=== PATIENT | female | born 1970 ===

== ENCOUNTER 2016-09-24 20:59 | Emergency (ER) | payer OTHER ==
--- NOTE | 2016-09-24 21:25 | C.PDOC ---
History Of Present Illness 45 year old presents to the ED complaining of bilateral lower abdominal pain that began tonight. Patient complains of an itchy rash. Patient denies dysuria, hematuria, nausea, vomiting, diarrhea, fever or back pain. Time Seen by Provider: 09/24/16 21:22 Chief Complaint (Nursing): Abdominal Pain History Per: Patient History/Exam Limitations: no limitations Onset/Duration Of Symptoms: Hrs (tonight) Current Symptoms Are (Timing): Still Present Context: Other Severity: Moderate Pain Scale Rating Of: 4 Location Of Pain/Discomfort: RLQ, LLQ Radiation Of Pain To:: None Quality Of Discomfort: "Pain" Exacerbating Factors: None Alleviating Factors: None Last Bowel Movement: Today Recent travel outside of the [place]: No Abnormal Vaginal Bleeding: No Past Medical History Reviewed: Historical Data, Nursing Documentation, Vital Signs Vital Signs: Last Vital Signs Temp 97.7 F 09/24/16 21:22 Pulse 70 09/24/16 21:22 Resp 20 09/24/16 21:22 BP 126/62 09/24/16 21:22 Pulse Ox 100 09/24/16 21:22 - [facility] Procedures INJECT/INFUSE NEC (07/14/04) Family History: States: Unknown Family Hx Review Of Systems Except As Marked, All Systems Reviewed And Found Negative. Constitutional: Negative for: Fever Gastrointestinal: Positive for: Abdominal Pain. Negative for: Nausea, Vomiting , Diarrhea Genitourinary: Negative for: Dysuria, Hematuria Musculoskeletal: Negative for: Back Pain Skin: Positive for: Rash Physical Exam - Physical Exam Appears: Non-toxic, No Acute Distress Skin: Warm, Dry, Rash (itchy) Head: Atraumatic, Normacephalic Oral Mucosa: Moist Neck: Normal ROM, Supple Chest: Symmetrical Cardiovascular: Rhythm Regular Respiratory: Normal Breath Sounds, No Rales, No Rhonchi, No Wheezing Gastrointestinal/Abdominal: Soft, Tenderness (bilateral lower quadrants), No Guarding, No Rebound Back: Normal Inspection, No CVA Tenderness Extremity: Normal ROM Neurological/Psych: Oriented x3, Normal Motor, Normal Sensation Gait: Steady ED Course And Treatment - Laboratory Results Result Diagrams: 09/24/16 21:42 09/24/16 21:42 - CT Scan/US Abdomen/Pelvis CT Other Rad Studies (CT/US): Read By Radiologist (Molly Goldstein MD), Radiology Report Reviewed CT/US Interpretation: EXAM: CT Abdomen and Pelvis With Intravenous Contrast. CLINICAL HISTORY: 45 years old, female; Pain; Abdominal pain; Additional info: Severe bilateral lower abd pain. TECHNIQUE: Axial computed tomography images of the abdomen and pelvis with intravenous contrast. This CT. exam was performed using one or more of the following dose reduction techniques: automated. exposure control, adjustment of the mA and/or kV according to patient size, and/or use of iterative. reconstruction technique. Coronal and sagittal reformatted images were created and reviewed. COMPARISON: No relevant prior studies available. FINDINGS: Lower thorax: The bilateral lung bases are clear. ABDOMEN: Liver: No acute findings. Gallbladder and bile ducts: The gallbladder is only minimally distended, without calcified stones. No. significant intra- or extrahepatic biliary ductal dilation. Pancreas: Enhances homogeneously. No ductal dilation. No discrete mass. Spleen: No acute findings. Adrenals: No acute findings. Kidneys and ureters: No acute findings. No hydronephrosis or renal calculi. No discrete solid mass. PELVIS: Bladder: The bladder is distended, and otherwise unremarkable. Reproductive: An involuting. subcentimeter cyst is identified within the left ovary. Appendix: The air filled appendix is of normal caliber (series 3, image 143) . ABDOMEN and PELVIS: Stomach and bowel: No obstruction. Trace mural thickening is identified within the colon, without. surrounding inflammation or fluid to confirm a colitis. Peritoneum: No significant fluid collection. No. free air. Lymph nodes: No pathologically enlarged lymph nodes. Vasculature: Unremarkable. Bones: No acute fracture. IMPRESSION: Trace mural thickening within the colon, without surrounding inflammation or fluid to confirm a colitis. Involuting subcentimeter cyst within the left ovary, for which ultrasound may be performed for. confirmation. Disposition Counseled Patient/Family Regarding: Diagnosis - Disposition Referrals: Gaston Lucero MD [Family Provider] - Disposition: HOME/ ROUTINE Disposition Time: 00:16 Condition: IMPROVED Prescriptions: DiphenhydrAMINE [Benadryl] 50 mg PO Q6 #14 cap traMADol/Acetaminophen [Ultracet 325 MG-37.5 MG] 1 tab PO Q4 #14 tab Instructions: Ovarian Cyst (ED), General Allergic Reaction (ED), Abdominal Pain (ED) - POA Present On Arrival: None - Clinical Impression Clinical Impression: Abdominal pain, Ovarian cyst, Allergic reaction - Scribe Statement The provider has reviewed the documentation as recorded by the Scribe Katie Triana Provider Attestation: All medical record entries made by the Scribe were at my direction and personally dictated by me. I have reviewed the chart and agree that the record accurately reflects my personal performance of the history, physical exam, medical decision making, and the department course for this patient. I have also personally directed, reviewed, and agree with the discharge instructions and disposition.
[2016-09-24 21:30] VITALS: TEMP 97.7
[2016-09-24] MEDS ORDERED: Iohexol 240 (50 ml) PO ONE (21:31)
[2016-09-24] MEDS ORDERED: Sodium Chloride 0.9% 1,000 ML IV ONE (21:31)
[2016-09-24] MEDS ORDERED: DiphenhydrAMINE 50 mg/ml Inj ONE (21:31)
[2016-09-24] MEDS ORDERED: DiphenhydrAMINE 50 mg/ml Inj IVP STA (21:33)
[2016-09-24 21:54] LABS: BASO # 0.1 K/uL (0.0-0.2); BASO % 0.9 % (0.0-2.0); EOS # 0.1 K/uL (0.0-0.7); EOS % 1.8 % (0.0-4.0); HEMATOCRIT 36.7 % (34.0-47.0); LYMPH # 3.2 K/uL (1.0-4.3); LYMPH % 41.8 % (20.0-40.0); MEAN CORPUSCULAR HEMOGLOBIN 28.2 pg (27.0-31.0); MEAN CORPUSCULAR HGB CONC 32.5 g/dL (33.0-37.0); MEAN PLATELET VOLUME 10.2 fL (7.2-11.7); MONO # 0.7 K/uL (0.0-0.8); MONO % 9.2 % (0.0-10.0); NRBC % 0.3 % (0.0-2.0); RED CELL DISTRIBUTION WIDTH 14.8 % (11.5-14.5); WHITE BLOOD COUNT 7.7 K/uL (4.8-10.8)
[2016-09-24] MEDS ORDERED: Sodium Chloride 0.9% 1,000 ML ONE (21:54)
[2016-09-24] MEDS ORDERED: Iohexol 240 (50 ml) ONE (21:54)
[2016-09-24 22:02] LABS: CHLORIDE 104 mmol/L (98-107); POTASSIUM 3.9 mmol/L (3.6-5.2); SODIUM 134 mmol/L (132-148)
[2016-09-24 22:04] LABS: BILIRUBIN,TOTAL 0.6 mg/dL (0.2-1.3); GFR AFRICAN-AMERICAN > 60
[2016-09-24 22:05] LABS: ALB/GLOB RATIO 1.4 (1.0-2.1); ALKALINE PHOSPHATASE 61 U/L (38-126); ALT/SGPT 32 U/L (9-52); AST/SGOT 26 U/L (14-36); BLOOD UREA NITROGEN 9 mg/dL (7-17); CALCIUM 8.8 mg/dl (8.6-10.4); CARBON DIOXIDE 19 mmol/L (22-30); GLUCOSE,RANDOM 119 mg/dL (65-105); TOTAL PROTEIN 7.6 g/dL (6.3-8.3)
[2016-09-24 22:22] LABS: RBC URINE < 1 /hpf (0-3); URINE BILIRUBIN NEGATIVE (NEGATIVE); URINE BLOOD NEGATIVE (NEGATIVE); URINE COLOR Straw (YELLOW); URINE GLUCOSE (UA) NORMAL (Normal); URINE KETONE NEGATIVE (NEGATIVE); URINE LEUKOCYTE ESTERASE NEG Leu/uL (Negative); URINE PROTEIN NEGATIVE (NEGATIVE); URINE UROBILINOGEN NORMAL mg/dL (0.2-1.0); WBC URINE < 1 /hpf (0-5)
[2016-09-24] MEDS ORDERED: Iohexol 350mg/ml 100 ML ONE (23:11)
[2016-09-25 00:21] VITALS: BP 111/78; PULSE 85; RESP 15; O2SAT 98
--- NOTE | 2016-09-25 08:27 | CT ---
PROCEDURE: CT Abdomen and Pelvis with contrast HISTORY: Abdominal pain COMPARISON: None. TECHNIQUE: Axial computed tomographic images were performed through the abdomen and pelvis with intravenous contrast. Subsequently, sagittal and coronal reformatted images were obtained. Radiation dose: Total exam DLP = 329 mGy-cm. This CT exam was performed using one or more of the following dose reduction techniques: Automated exposure control, adjustment of the mA and/or kV according to patient size, and/or use of iterative reconstruction technique. FINDINGS: LOWER THORAX: 4 millimeter subpleural nodular density seen within the medial aspect of the right middle lobe LIVER: Unremarkable. No gross lesion or ductal dilatation. GALLBLADDER AND BILE DUCTS: Minimally distended gallbladder. PANCREAS: Unremarkable. No gross lesion or ductal dilatation. SPLEEN: Unremarkable. ADRENALS: Unremarkable. No mass. KIDNEYS AND URETERS: Unremarkable. No hydronephrosis. No solid mass. VASCULATURE: Unremarkable. No aortic aneurysm. BOWEL: Trace mural thickening is identified at the level of the distal transverse colon and left hemicolon. . APPENDIX: Normal appendix. PERITONEUM: Unremarkable. No free fluid. No free air. LYMPH NODES: Unremarkable. No enlarged lymph nodes. BLADDER: Distended but otherwise unremarkable. REPRODUCTIVE: Involuting sub centimeter cyst is identified within the left ovary. BONES: Hemisacralization of the right aspect of the L5 vertebral body. OTHER FINDINGS: None. IMPRESSION: Mild mural thickening of portions of the left hemicolon. This may represent early acute infectious and or inflammatory changes. Clinical correlation. Posttreatment followup may be helpful if clinically indicated. Involuting sub centimeter cyst within the left ovary. Further evaluation with ultrasound may be helpful. These findings were preliminarily reported at 12:06 a.m. on 09/25/[address] Molly Goldstein from [facility].
== END 2016-09-25 00:30 | disposition home or self-care (01) ==
LOC: C.ER 20:59
DX: N83.209 Unspecified ovarian cyst, unspecified side (principal); R10.30 Lower abdominal pain, unspecified; T78.40XA Allergy, unspecified, initial encounter
CPT/HCPCS: 74177; 80053; 81001; 83690; 84703; 85025; 96374; 96375; 99285; J1200; J2270; J2930; J7040; Q9966; Q9967